=== PATIENT | male | born 1985 | race Caucasian/White ===

== ENCOUNTER 2017-01-12 11:38 | Emergency (ER) | payer BC ==
[2017-01-12 11:47] VITALS: RESP 18
[2017-01-12] MEDS ORDERED: MORPHINE SULFATE 2 MG/ML SYRINGE IVP STA (11:50)
--- NOTE | 2017-01-12 12:26 | ED ---
Chest Pain HPI - General Chief Complaint: Chest Pain Stated Complaint: Chest Pain Time Seen by Provider: 01/12/17 11:41 Source: EMS Mode of arrival: EMS Limitations: no limitations - History of Present Illness Initial Comments: 31 years old gentleman now had a chest pain since morning he was hyperventilating he has numbness of his hands and feet was short winded and deep breaths worsen the chest pain, he denies any history of heart disease he denies any trauma to the anterior chest and no fever no chills he is not coughing up any phlegm either. ROS system is otherwise unremarkable - Related Data Home Medications Medication Instructions Recorded Confirmed No Known Home Medications [No 01/12/17 01/12/17 Known Home Medications] Allergies Allergy/AdvReac Type Severity Reaction Status Date / Time Sulfa (Sulfonamide Allergy Rash/Hives Verified 01/12/17 13:13 Antibiotics) Review of Systems ROS Statement: Those systems with pertinent positive or pertinent negative responses have been documented in the HPI. ROS Other: All systems not noted in ROS Statement are negative. EKG Findings - EKG Comments: EKG Findings:: EKG is normal sinus rhythm with a sinus arrhythmia ventricular rate is 81 DC interval is 118 QRS duration is 1 of 4 QT/QTc is 382/443 review of this EKG does not reveal any ST elevation or ST depression Past Medical History Past Medical History: No Reported History History of Any Multi-Drug Resistant Organisms: None Reported Past Surgical History: Appendectomy Past Psychological History: No Psychological Hx Reported Smoking Status: Never smoker Past Alcohol Use History: Occasional Past Drug Use History: None Reported General Exam - General Exam Comments Initial Comments: General: The patient is awake and alert, in no distress, and he is bit anxious Skin: Skin is warm and dry and no rashes or lesions are noted. Eye: Pupils are equal, round and reactive to light, extra-ocular movements are intact; there is normal conjunctiva bilaterally. Ears, nose, mouth and throat: There are moist mucous membranes and no oral lesions. Neck: The neck is supple, there is no tenderness or JVD. Cardiovascular: There is a regular rate and rhythm. No murmur, rub or gallop is appreciated. Respiratory: To auscultation bilateral, no wheezing no rhonchi no distress respiratory de paz noticed Gastrointestinal: Soft, non-distended, non-tender abdomen without masses or organomegaly noted. There is no rebound or guarding present. Bowel sounds are unremarkable. Back: There is no tenderness to palpation in the midline. There is no obvious deformity. Musculoskeletal: Normal ROM, no tenderness, There is no pedal edema. There is no calf tenderness or swelling. No cords were appreciated. Neurological: CN II-XII intact, Cranial nerves III through XII are intact. There are no obvious motor or sensory deficits. Coordination appears grossly intact. Speech is normal. Psychiatric: Cooperative, appropriate mood & affect, normal judgment. Limitations: no limitations Course Vital Signs 01/12/17 01/12/17 01/12/17 11:41 12:47 13:00 Temperature 97.6 F Pulse Rate 73 88 90 Respiratory 18 18 18 Rate Blood Pressure 128/76 129/75 O2 Sat by Pulse 100 97 95 Oximetry 01/12/17 14:00 Temperature Pulse Rate 84 Respiratory 18 Rate Blood Pressure 148/76 O2 Sat by Pulse 96 Oximetry Him he is chest pain-free on arrival we reviewed his blood work his white count is elevated with the 18,000 with a left shift d-dimer is negative troponin is negative EKG was fine compressive metabolic panel is negative so his his chest x -ray offered him to be observed him for 3 sets of cardiac markers he preferred to see vocational rehabilitation administrator as outpatient and he has no history of heart disease and he denies any other risk factors like street drugs, as patient's patient's wishes will have him call cardiology for single Saturday morning and does see them as outpatient follow-up he was advised to come back to ER if if his chest pain comes back Disposition Clinical Impression: Chest pain Disposition: HOME SELF-CARE Condition: Good Instructions: Chest Pain (ED) Referrals: Toni Fuchs MD [Primary Care Provider] - 1-2 days Clemente Recinos MD [STAFF PHYSICIAN] - 1-2 days
--- NOTE | 2017-01-12 12:26 | XR ---
EXAMINATION TYPE: XR chest 2V DATE OF EXAM: 01/12/2017 12:12 PM COMPARISON: None HISTORY: 31-year-old male with chest pain TECHNIQUE: PA and lateral views FINDINGS: The cardiomediastinal silhouette, aorta, and pulmonary vasculature are within normal limits. Lungs an d pleural spaces are clear. IMPRESSION: No acute cardiopulmonary process.
[2017-01-12 13:08] LABS: Basophils # (A) 0.1 k/uL (0-0.2); Basophils % (A) 0 %; CH 31.8; CHCM 32.8; Eosinophils % (A) 0 %; HCT 45.8 % (39.0-53.0); HDW 2.24; Luc # (Auto) 0.17; Luc % (Auto) 1; Lymphocytes # (A) 1.6 k/uL (1.0-4.8); Lymphocytes % (A) 9 %; MCH 31.9 pg (25.0-35.0); MCHC 32.7 g/dL (31.0-37.0); MCV 97.4 fL (80.0-100.0); Mean Platelet Volume 7.1; Monocytes # (A) 1.2 k/uL (0-1.0); Monocytes % (A) 7 %; Neutrophils % (A) 83 %; RDW 13.3 % (11.5-15.5); WBC (Perox) 17.44
[2017-01-12 13:17] LABS: ALT 23 U/L (21-72); AST 17 U/L (17-59); Alkaline Phosphatase 71 U/L (38-126); Anion Gap 10 mmol/L; Blood Urea Nitrogen 16 mg/dL (9-20); Calcium 9.7 mg/dL (8.4-10.2); Carbon Dioxide 26 mmol/L (22-30); Chloride 107 mmol/L (98-107); Glucose 80 mg/dL (74-99); Non-African American GFR(MDRD) >60 (>60 ml/min/1.73 sqM); Potassium 3.9 mmol/L (3.5-5.1); Sodium 143 mmol/L (137-145); Total Bilirubin 0.8 mg/dL (0.2-1.3); Total Protein 7.3 g/dL (6.3-8.2)
[2017-01-12 13:21] LABS: INR 1.1 (<1.1); Partial Thromboplastin Time 20.9 sec (22.0-30.0); Prothrombin Time 10.9 sec (9.0-12.0)
[2017-01-12 13:33] LABS: Creatine Kinase 60 U/L (55-170)
[2017-01-12 13:45] LABS: Creatine Kinase MB 0.3 ng/mL (0.0-2.4); Troponin I <0.012 ng/mL (0.000-0.034)
[2017-01-12 15:23] VITALS: BP 142/83; PULSE 102; TEMP 97.9
== END 2017-01-12 15:00 | disposition home or self-care (01) ==
LOC: EC 11:38
DX: R07.9 Chest pain, unspecified (principal); D72.829 Elevated white blood cell count, unspecified; R06.4 Hyperventilation; R20.0 Anesthesia of skin; Z88.2 Allergy status to sulfonamides; Z53.20 Procedure and treatment not carried out because of patient's decision for unspecified reasons
CPT/HCPCS: 36415; 71020; 80053; 82550; 82553; 83735; 84484; 85025; 85379; 85610; 85730; 93005; 99285

== ENCOUNTER 2019-04-16 14:15 | Emergency (ER) | payer BC ==
[2019-04-16] MEDS ORDERED: SODIUM CHLORIDE 0.9% 1,000 ML IV STA (14:42)
[2019-04-16] MEDS ORDERED: ASPIRIN 81 MG PO STA (14:43)
[2019-04-16] MEDS ORDERED: KETOROLAC 30 MG/ML 1 ML VIAL IVP STA (14:43)
[2019-04-16] MEDS ORDERED: LORazepam 2 MG/ML INJ IV STA (14:43)
--- NOTE | 2019-04-16 14:51 | ED ---
General Adult HPI - General Chief complaint: Shortness of Breath Stated complaint: ISAAK Time Seen by Provider: 04/16/19 14:28 Source: patient, RN notes reviewed Mode of arrival: ambulatory Limitations: no limitations - History of Present Illness Initial comments: 34-year-old male without any significant past medical history presents to the emergency department for a chief complaint of shortness of breath times one month. States it seems consistent. Denies any alleviating or aggravating factors. However does admit that was given stairs makes his shortness of breath worse. Patient also admits to a sensation of having a balloon in his chest. States this has also been ongoing for the past month. Denies pain with taking a deep breath. Denies any abdominal pain. Denies any cardiac history. Denies any history of smoking.Patient has no other complaints at this time including shortness of breath, chest pain, abdominal pain, nausea or vomiting, headache, or visual changes. - Related Data Home Medications Medication Instructions Recorded Confirmed No Known Home Medications 04/16/19 04/16/19 Allergies Allergy/AdvReac Type Severity Reaction Status Date / Time Latex, Natural Rubber Allergy Itching Verified 04/16/19 15:17 Sulfa (Sulfonamide Allergy Rash/Hives Verified 04/16/19 15:17 Antibiotics) Review of Systems ROS Statement: Those systems with pertinent positive or pertinent negative responses have been documented in the HPI. ROS Other: All systems not noted in ROS Statement are negative. Past Medical History Past Medical History: No Reported History History of Any Multi-Drug Resistant Organisms: None Reported Past Surgical History: Appendectomy Past Psychological History: No Psychological Hx Reported Smoking Status: Never smoker Past Alcohol Use History: Occasional Past Drug Use History: None Reported General Exam Limitations: no limitations General appearance: alert, in no apparent distress Head exam: Present: atraumatic, normocephalic, normal inspection Eye exam: Present: normal appearance, PERRL, EOMI. Absent: scleral icterus, conjunctival injection, periorbital swelling ENT exam: Present: normal exam, mucous membranes moist Neck exam: Present: normal inspection, full ROM. Absent: tenderness, meningismus, lymphadenopathy Respiratory exam: Present: normal lung sounds bilaterally, chest wall tenderness (Mild anterior chest wall tenderness to palpation). Absent: respiratory distres s, wheezes, rales, rhonchi, stridor Cardiovascular Exam: Present: regular rate, normal rhythm, normal heart sounds. Absent: systolic murmur, diastolic murmur, rubs, gallop, clicks GI/Abdominal exam: Present: soft, normal bowel sounds. Absent: distended, tenderness, guarding, rebound, rigid Neurological exam: Present: alert, oriented X3, CN II-XII intact Psychiatric exam: Present: normal affect, normal mood Course Vital Signs 04/16/19 04/16/19 04/16/19 14:20 15:22 16:03 Temperature 97.8 F Pulse Rate 88 90 93 Respiratory 18 20 18 Rate Blood Pressure 127/79 133/81 137/76 O2 Sat by Pulse 98 96 98 Oximetry Medical Decision Making - Medical Decision Making 34-year-old male without any significant past medical history presents to the emergency department for a chief complaint shortness of breath. States he has had this shortness of breath for about one month. Denies alleviating or aggravating factors but does admit that stairs make it worse. Does admit to a sensation of having a balloon in the chest. Denies any significant pain of the chest. No history of smoking or asthma. On examination patient is well appearing. Vitals are stable. EKG shows a normal sinus rhythm with a ventricular rate of 87. CBC and CMP are unremarkable. Glucose 169, patient jus t ate prior to arrival. Troponin is negative. D-dimer is negative. Chest x- ray shows no acute cardiopulmonary process. At this time I do not see a emergent cause for her shortness of breath. Patient does not appear in any respiratory distress whatsoever. At this time recommended following up with primary care returning if he has any worsening symptoms. - Lab Data Result diagrams: 04/16/19 15:02 04/16/19 15:02 Lab Results 04/16/19 04/16/19 04/16/19 Range/Units 15:02 15:02 15:02 WBC 8.4 (3.8-10.6) k/uL RBC 4.67 (4.30-5.90) m/uL Hgb 15.1 (13.0-17.5) gm/dL Hct 45.2 (39.0-53.0) % MCV 96.7 (80.0-100.0) fL MCH 32.3 (25.0-35.0) pg MCHC 33.4 (31.0-37.0) g/dL RDW 12.7 (11.5-15.5) % Plt Count 261 (150-450) k/uL Neutrophils % 68 % Lymphocytes % 21 % Monocytes % 6 % Eosinophils % 2 % Basophils % 0 % Neutrophils # 5.7 (1.3-7.7) k/uL Lymphocytes # 1.8 (1.0-4.8) k/uL Monocytes # 0.5 (0-1.0) k/uL Eosinophils # 0.2 (0-0.7) k/uL Basophils # 0.0 (0-0.2) k/uL PT 10.6 (9.0-12.0) sec INR 1.0 (<1.2) APTT 23.9 (22.0-30.0) sec D-Dimer <0.17 (<0.60) mg/L FEU Sodium 139 (137-145) mmol/L Potassium 3.7 (3.5-5.1) mmol/L Chloride 103 (98-107) mmol/L Carbon Dioxide 27 (22-30) mmol/L Anion Gap 9 mmol/L BUN 13 (9-20) mg/dL Creatinine 0.84 (0.66-1.25) mg/dL Est GFR (CKD-EPI)AfAm >90 (>60 ml/min/1.73 sqM) Est GFR (CKD-EPI)NonAf >90 (>60 ml/min/1.73 sqM) Glucose 169 H (74-99) mg/dL Calcium 9.2 (8.4-10.2) mg/dL Magnesium 1.9 (1.6-2.3) mg/dL Total Bilirubin 0.5 (0.2-1.3) mg/dL AST 17 (17-59) U/L ALT 15 L (21-72) U/L Alkaline Phosphatase 55 (38-126) U/L Troponin I (0.000-0.034) ng/mL Total Protein 6.8 (6.3-8.2) g/dL Albumin 4.3 (3.5-5.0) g/dL Amylase 50 (30-110) U/L Lipase 68 (23-300) U/L 04/16/19 Range/Units 15:02 WBC (3.8-10.6) k/uL RBC (4.30-5.90) m/uL Hgb (13.0-17.5) gm/dL Hct (39.0-53.0) % MCV (80.0-100.0) fL MCH (25.0-35.0) pg MCHC (31.0-37.0) g/dL RDW (11.5-15.5) % Plt Count (150-450) k/uL Neutrophils % % Lymphocytes % % Monocytes % % Eosinophils % % Basophils % % Neutrophils # (1.3-7.7) k/uL Lymphocytes # (1.0-4.8) k/uL Monocytes # (0-1.0) k/uL Eosinophils # (0-0.7) k/uL Basophils # (0-0.2) k/uL PT (9.0-12.0) sec INR (<1.2) APTT (22.0-30.0) sec D-Dimer (<0.60) mg/L FEU Sodium (137-145) mmol/L Potassium (3.5-5.1) mmol/L Chloride (98-107) mmol/L Carbon Dioxide (22-30) mmol/L Anion Gap mmol/L BUN (9-20) mg/dL Creatinine (0.66-1.25) mg/dL Est GFR (CKD-EPI)AfAm (>60 ml/min/1.73 sqM) Est GFR (CKD-EPI)NonAf (>60 ml/min/1.73 sqM) Glucose (74-99) mg/dL Calcium (8.4-10.2) mg/dL Magnesium (1.6-2.3) mg/dL Total Bilirubin (0.2-1.3) mg/dL AST (17-59) U/L ALT (21-72) U/L Alkaline Phosphatase (38-126) U/L Troponin I <0.012 (0.000-0.034) ng/mL Total Protein (6.3-8.2) g/dL Albumin (3.5-5.0) g/dL Amylase (30-110) U/L Lipase (23-300) U/L Disposition Clinical Impression: Shortness of breath Disposition: HOME SELF-CARE Condition: Good Instructions (If sedation given, give patient instructions): Shortness of Breath (ED) Additional Instructions: Please follow up with primary care in 1-2 days. If you are having worsening symptoms then return to the emergency department. Is patient prescribed a controlled substance at d/c from ED?: No Referrals: Toni Fuchs MD [Primary Care Provider] - 1-2 days Time of Disposition: 16:35
[2019-04-16 15:20] LABS: Basophils % (A) 0 %; Eosinophils # (A) 0.2 k/uL (0-0.7); Eosinophils % (A) 2 %; HCT 45.2 % (39.0-53.0); HGB 15.1 gm/dL (13.0-17.5); Lymphocytes # (A) 1.8 k/uL (1.0-4.8); Lymphocytes % (A) 21 %; MCH 32.3 pg (25.0-35.0); MCHC 33.4 g/dL (31.0-37.0); MCV 96.7 fL (80.0-100.0); Mean Platelet Volume 7.1; Monocytes # (A) 0.5 k/uL (0-1.0); Monocytes % (A) 6 %; Neutrophils # (A) 5.7 k/uL (1.3-7.7); Neutrophils % (A) 68 %; Platelet Count 261 k/uL (150-450); RBC 4.67 m/uL (4.30-5.90); RDW 12.7 % (11.5-15.5); WBC 8.4 k/uL (3.8-10.6)
[2019-04-16 15:28] LABS: ALT 15 U/L (21-72); AST 17 U/L (17-59); African American GFR (CKD) >90 (>60 ml/min/1.73 sqM); Albumin 4.3 g/dL (3.5-5.0); Alkaline Phosphatase 55 U/L (38-126); Amylase 50 U/L (30-110); Anion Gap 9 mmol/L; Blood Urea Nitrogen 13 mg/dL (9-20); Calcium 9.2 mg/dL (8.4-10.2); Carbon Dioxide 27 mmol/L (22-30); Chloride 103 mmol/L (98-107); Glucose 169 mg/dL (74-99); Lipase 68 U/L (23-300); Magnesium 1.9 mg/dL (1.6-2.3); Potassium 3.7 mmol/L (3.5-5.1); Sodium 139 mmol/L (137-145); Total Bilirubin 0.5 mg/dL (0.2-1.3); Total Protein 6.8 g/dL (6.3-8.2)
[2019-04-16 15:33] LABS: D-Dimer <0.17 mg/L FEU (<0.60); Partial Thromboplastin Time 23.9 sec (22.0-30.0); Prothrombin Time 10.6 sec (9.0-12.0)
--- NOTE | 2019-04-16 15:56 | XR ---
EXAMINATION TYPE: XR chest 2V DATE OF EXAM: 04/16/2019 COMPARISON: 01/12/2017 INDICATION: Difficulty breathing, short of breath x1 month, intermittent chest pain TECHNIQUE: Frontal and lateral views of the chest are obtained. FINDINGS: The heart size is normal. The pulmonary vasculature is normal. The lungs are clear. IMPRESSION: 1. No acute pulmonary process.
[2019-04-16 16:04] VITALS: RESP 18
[2019-04-16 16:54] VITALS: BP 134/77; PULSE 80; TEMP 97.5
== END 2019-04-16 16:53 | disposition home or self-care (01) ==
LOC: EC 14:15
DX: R06.02 Shortness of breath (principal); Z88.2 Allergy status to sulfonamides
CPT/HCPCS: 36415; 93005; 85379; 80053; 82150; 83690; 83735; 84484; 85025; 85610; 85730; 71046; 99285; 96374; 96375; 96361; J2060; J1885